=== PATIENT | female | born 1985 | race Caucasian/White ===

== ENCOUNTER 2025-05-19 11:16 | Emergency (ER) | payer OTHER, SELFPAY ==
[2025-05-19 11:16] VITALS: BP 128/81; PULSE 90; RESP 16; TEMP 35.8; O2SAT 99; BMI 32.5
--- NOTE | 2025-05-19 11:27 | RAD_ITS ---
PROCEDURE: CHEST PA AND LATERAL 05/19/2025 REASON FOR EXAM: COUGH TECHNIQUE: Procedure Code: RADCXR Modality: DX Procedure: CHEST PA AND LATERAL COMPARISON: None FINDINGS: Hardware: None Heart: The heart size is normal. Mediastinum: The mediastinal contour is unremarkable. Lungs: The lungs are clear. Bones: The bones are unremarkable. RAD/Chest PA and Lateral IMPRESSION: No acute pulmonary process Reading Location: [id number]
--- NOTE | 2025-05-19 11:49 | EDS_ITS ---
HPI History of Present Illness Chief Complaint: General Illness Narrative Narrative: Patient is a 39-year-old female with a past medical history of epilepsy, migraine headaches, adrenal cyst, hiatal hernia who presents to the emergency department with a chief complaint of cough, runny nose, migraine headache and overall not feeling well. Patient denies any recent sick contacts she states that she has been ill for the last few days. She states that she has not really taken anything for her symptoms other than Excedrin for migraine headache. She states that this feels like her typical migraine headache. Patient denies any head injuries or trauma denies any blood thinners. [facility] Medical History (Updated 05/19/25 @ 13:[address] Shemar Vásquez, DO) Hernia, hiatal DDD (degenerative disc disease), lumbar Adrenal cyst CRPS (complex regional pain syndrome type I) Epilepsy Migraine Allergy/AdvReac Type Severity Reaction Status Date / Time doxycycline Allergy Mild Anaphylaxis Verified 05/19/25 11:22 lanolin Allergy Mild Rash Verified 05/19/25 11:22 miconazole Allergy Mild Hives Verified 05/19/25 11:22 Penicillins (PCN) Allergy Mild Hives Verified 05/19/25 11:22 Sulfa (Sulfonamide Allergy Mild Anaphylaxis Verified 05/19/25 11:22 Antibiotics) tramadol Allergy Mild PT UNSURE Verified 05/19/25 11:22 OF REACTION Social History Smoking Status: Current every day smoker tobacco type: e-cigarettes ROS ROS ED ROS Narrative Constitutional: Denies any fevers or chills complains of headache as noted above Eyes: Denies double vision Cardiovascular: Denies chest pain or palpitations Respiratory: Complains of cough denies shortness of breath Abdomen: Denies abdominal pain nausea vomiting diarrhea : Denies urinary symptoms Neurological: Denies numbness, weakness, tingling Musculoskeletal: Denies back pain Skin: Denies any rashes or lesions EXAM Physical Exam Narrative Exam Narrative: General: Patient was lying in bed rest comfortably did not appear to be in acute distress Head: Atraumatic, normocephalic Eyes, ears, nose, throat: PERRL bilaterally, EOMI bilaterally, no conjunctival injection noted, posterior pharynx visualized no erythema uvula midline no concern for peritonsillar abscess no exudates Neck: Soft, supple, trachea midline Cardiovascular:-Regular rate and rhythm Respiratory: Clear to auscultation bilaterally Abdomen: Soft, nondistended, no tenderness palpation Extremities: +4/5 strength noted in the bilateral upper and lower extremities Neurological: Patient follow commands as she was at [facility] year is 2024 Skin: Warm, dry, intact no rashes or lesions noted Const Vital Signs: 05/19/25 11:16 05/19/25 11:25 Temperature 96.5 F L Temperature Source Oral Pulse Rate 90 Respiratory Rate 16 Respiratory Pattern Normal Blood Pressure 128/81 H Blood Pressure Mean 96 Pulse Ox 99 Oxygen Delivery Method Room Air MDM MDM MDM Narrative Medical decision making narrative: Patient is a 39-year-old female who presented to the emergency department with a chief complaint of generalized not feeling well, body aches, runny nose, cough, migraine headache. On the differential diagnosis includes but not limited to viral illness, pneumonia, . Once workup is obtained reviewed she will be reevaluated. Patient be given IV fluids, Reglan, Tylenol. Patient test was negative. Patient chest x-ray was reviewed by myself and the radiology showed no acute cardiopulmonary processes. Patient tested negative for COVID flu and RSV. On reevaluation the patient she is feeling better she would like to go home. She was encouraged to follow-up with her doctor and return with worsening symptoms or concerns. All course concerns answered she is discharged home in stable condition Lab Data Labs: Laboratory Results - last 24 hr 05/19/25 13:10 Urine Test Negative Radiography Diagnostic Testing: Clinical Impression(s) from Imaging Studies Chest X-Ray 05/19/25 11:27 IMPRESSION: No acute pulmonary process Reading Location: [facility] Discharge Plan Triage Chief Complaint: General Illness ED Provider: Shemar Vásquez Dx/Rx/DC Orders Clinical Impression: Cough, Upper respiratory infection, viral, Headache, migraine Primary Care Provider: Care Physician,No Primary Referrals: Care Physician,No Primary [Primary Care Provider, Medical] Activity Restrictions/Additional Instructions: Continue supportive care follow-up with your primary care physician in the outpatient setting. Your x-ray did not show any evidence of pneumonia. Return with worsening symptoms or any other concerns. Continue to rotate Tylenol and ibuprofen [id number] for fever or pain control when you do this you can take something every 3 hours for pain with a max dose of Tylenol 4000 mg and max dose of ibuprofen in 24 hours 3200 mg. Print Language: Salvadorean Disposition Disposition: Home, Self Care
[2025-05-19] MEDS: 0.9% Normal Saline (1000mL) 1,000 ML 999 ML IV (11:53)
--- NOTE | 2025-05-19 13:09 | ED.RN ---
Spouse/S.O brought pt something to drink, pt was informed she is not allowed to eat or drink, as she was trying hide her drink under the blanket.
[2025-05-19 13:34] LABS: Internal QC Validated? YES +Cl - CLEAR BKGD; Pregnancy, Urine Negative Negative
--- NOTE | 2025-05-19 13:35 | CM.ED ---
Social work Reason for referral: no PCP Referral source: case find SW entered patient's room, introducing self and role at [facility]. Patient was observed sitting up in bed with patient's significant other, Dimitrios, and sister, Hema, at bedside. Patient confirmed lacking a PCP and accepted resources of [facility] Provider Directory and Emma Garcia information. Patient stated moving to [place] soon, though currently living in [place]. Patient denied further needs at this time and Hema stated having everything covered for when patient moves to [place]. Lelia Cantrell, DIRECTOR OF FINANCE, [employer] MACHINE OPERATOR
[2025-05-19 13:48] VITALS: BP 108/63; PULSE 86; RESP 18; TEMP 37; O2SAT 100
== END 2025-05-19 13:55 | disposition home or self-care (01) ==
PROVIDERS: Emergency Provider Emergency Medicine; Visit Provider Emergency Medicine
DX: J06.9 Acute upper respiratory infection, unspecified (principal); G40.909 Epilepsy, unspecified, not intractable, without status epilepticus; G43.909 Migraine, unspecified, not intractable, without status migrainosus; K44.9 Diaphragmatic hernia without obstruction or gangrene; E27.8 Other specified disorders of adrenal gland; F17.290 Nicotine dependence, other tobacco product, uncomplicated
CPT/HCPCS: 71046; 81025; 87631; 96361; 96374; 99283; A4216